=== PATIENT | male | born 1945 | race Caucasian/White ===

== ENCOUNTER 2017-02-19 20:16 | Inpatient (IN) | payer OTHER ==
[~2017-02-19] VITALS: Ht 175.3 cm; Wt 93.4 kg
[~2017-02-19 20:16] MED LIST: ACETAMINOPHEN325 M1 PO; ADVAIR 250/501 DISK IH; ADVAIR HFA120 INHALA IH; ALBUTEROL0.63 MG/3 IH; AMIODARONE HCL400 MG PO; Advair HFA 115/21 IH; Aldactone PO; Ativan PO; BISOPROLOL FUMAR5 MG PO; BUMEX1 MG PO; BUMEX2 MG PO; Bumex PO; CALCITRIOL0.25 MCG PO; CELEXA10 MG PO; COGENTIN0.5 MG PO; COUMADIN2 MG PO; COUMADIN2.5 MG PO; CYANOCOBAL1000 MCG/2 IM; Cordarone, Pacerone PO; Coreg PO; Coumadin Protocol PO; Coumadin,Jantoven PO; Cozaar PO; DAILY VITE1 EAC1 PO; DULCOLAX10 MG PR; DuoNeb IH; FERROUS SULFAT325 MG PO; FLAGYL500 MG PO; FLEET ENEMA EX230 ML PR; FLORAJEN460 MG PO; Flagyl PO; GUAIFENESIN400 MG PO; HALDOL DECANOATE IM; HALDOL10 MG; K-DUR20 MEQ PO; K-Dur PO; KLOR-CON 1010 ME1 PO; LANOXIN125 MCG PO; LASIX80 MG PO; LO-DOSE ASPIRIN81 M1 PO; LOPERAMIDE2 MG PO; LOPRESSOR50 MG PO; LOSARTAN POTASS50 MG PO; Lactinex,Floranex PO; Lasix PO; Lopressor PO; MAALOX MAXIMUM355 ML PO; MAGNESIUM400 M1 PO; METOLAZONE5 MG PO; MILK OF MAGN PO; Maalox, Mylanta PO; Micro-K,K-Tab,K-Dur, PO; PAXIL10 MG PO; PRINIVIL10 MG PO; PROVENTIL,2.5 MG/0.5 IH; Paxil PO; Protonix PO; Rocaltrol PO; SEROQUEL XR200 MG PO; SEROQUEL XR300 MG PO; SEROQUEL100 MG PO; SEROQUEL300 MG PO; SEROquel PO; Santyl TP; TYLENOL REGULA325 MG PO; VITAMIN D-32000 UNIT PO; VITAMIN D32000 UNIT PO; Vitamin D PO; XANAX0.25 MG PO; XARELTO15 MG PO; Xopenex IH; Xylocaine 5% TP; Zestril,Prinivil PO; Ziac 2.5/6.25 PO; [UNRECOGNIZED DRUG - REMARK]
[2017-02-19 20:38] LABS: HEMATOCRIT 29.4 % (38.0-50.0); MCH 30.9 PG (29.0-34.0); MCV 90.7 FL (86-99); MEAN PLAT.VOLUME 11.8 uM^3 (9.0-12.4); PLATELET COUNT 219 K/uL (156-360); RBC DIS.WIDTH-CV 12.9 % (11.8-14.6); RBC DIS.WIDTH-SD 42.5 % (39-53); RED BLOOD COUNT 3.24 M/uL (4.00-5.50); WHITE BLOOD COUNT 9.4 K/uL (4.1-10.2)
[2017-02-19 21:03] LABS: CHLORIDE 90 mEq/L (99-109)
[2017-02-19 21:04] LABS: POTASSIUM 4.5 mEq/L (3.7-5.4); SODIUM 122 mEq/L (136-147)
[2017-02-19 21:05] LABS: GLUCOSE 124 mg/dL (70-99)
[2017-02-19 21:07] LABS: ANION GAP 18 MEQ/L (2-14)
[2017-02-19 21:09] LABS: GFR ESTIMATE (CALCULATED) 25 mL/min/; TROP-I INTERPRETATION INDETERMINATE; TROPONIN-I 0.49 ng/mL (0.0-0.30)
[2017-02-19 21:10] LABS: UREA NITROGEN (BUN) 53 mg/dL (9-23)
[2017-02-19 21:26] LABS: BASE EXCESS -1.9 mEq/L (-3 to +3); BICARBONATE 20.6 mEq/L (22-26); CARBOXY HGB 1.9 % (0-5); COMMENTS - BLOOD GASES C+A+; DEVICE NIV; FI02 50 %; METHEMOGLOBIN 1.4 % (0-1.5); MODE SPONT; PCO2 27 mm Hg (35-45); PEEP 5 CM/H20; PO2 186 mm Hg (80-100); PRES. SUPPORT 10 CM/H2O; SITE RR; TOTAL RESP RATE 22 resp/min; pH 7.49 (7.35-7.45)
[2017-02-19] MEDS ORDERED: FLORANEX CHE1 TABLET PO (21:59)
[2017-02-19] MEDS ORDERED: AMOX TR-K CLV1 EAC4 PO (22:01)
[2017-02-19] MEDS ORDERED: DUONEB 2.5-0.5 M3 ML AEROSOL (22:05)
[2017-02-19 22:29] LABS: INFLUENZA A VIRAL ANTIGEN NEGATIVE; INFLUENZA B VIRAL ANTIGEN POSITIVE
[2017-02-20] VITALS (23 sets, daily range): BP systolic 0–120; BP diastolic 0–87
[2017-02-20 00:45] LABS: TROP-I INTERPRETATION INDETERMINATE; TROPONIN-I 0.51 ng/mL (0.0-0.30)
[2017-02-20 02:11] LABS: METH RESISTANT S AUREUS PCR NEGATIVE (NEGATIVE)
[2017-02-20 02:15] LABS: PROBE CHECK PASS; SPECIMEN PROCESSING CONTROL PASS
[2017-02-20 06:37] LABS: MCH 30.7 PG (29.0-34.0); MCHC 33.6 G/DL (30.0-36.0); MCV 91.5 FL (86-99); MEAN PLAT.VOLUME 12.1 uM^3 (9.0-12.4); PLATELET COUNT 209 K/uL (156-360); RBC DIS.WIDTH-CV 13.1 % (11.8-14.6); RBC DIS.WIDTH-SD 42.5 % (39-53); RED BLOOD COUNT 3.06 M/uL (4.00-5.50); WHITE BLOOD COUNT 6.6 K/uL (4.1-10.2)
[2017-02-20 07:04] LABS: ALKALINE PHOSPHATASE 84 IU/L (3-129); ANION GAP 13 MEQ/L (2-14); CHLORIDE 91 MEQ/L (99-109); GFR ESTIMATE (CALCULATED) 25 mL/min/; GLUCOSE 123 mg/dL (70-99); POTASSIUM 4.3 MEQ/L (3.7-5.4); SAMPLE HEMOLYSIS CHECK 0; SAMPLE ICTERIC CHECK 0; SAMPLE LIPEMIA CHECK 0; SODIUM 124 MEQ/L (136-147); TOTAL BILIRUBIN 0.7 MG/DL (0.0-1.0); UREA NITROGEN (BUN) 54 mg/dL (9-23)
[2017-02-20 09:45] LABS: TROP-I INTERPRETATION INDETERMINATE; TROPONIN-I 0.57 ng/mL (0.0-0.30)
[2017-02-20 13:32] LABS: INTER. NORMALIZED RATIO 1.5; PROTHROMBIN TIME 15.9 (9.2-11.2); PTT 27.5 (25-32)
[2017-02-20 15:27] LABS: TROP-I INTERPRETATION INDETERMINATE; TROPONIN-I 0.44 ng/mL (0.0-0.30)
[2017-02-21] VITALS (9 sets, daily range): BP systolic 92–120; BP diastolic 47–83
[2017-02-21 14:05] LABS: ANION GAP 11 MEQ/L (2-14); CHLORIDE 90 MEQ/L (99-109); MCH 31.1 PG (29.0-34.0); MCHC 33.4 G/DL (30.0-36.0); MEAN PLAT.VOLUME 11.2 uM^3 (9.0-12.4); POTASSIUM 3.9 MEQ/L (3.7-5.4); RBC DIS.WIDTH-CV 13.4 % (11.8-14.6); RBC DIS.WIDTH-SD 45.3 % (39-53); RED BLOOD COUNT 3.44 M/uL (4.00-5.50); SAMPLE HEMOLYSIS CHECK 0; SAMPLE ICTERIC CHECK 0; SAMPLE LIPEMIA CHECK 0; SODIUM 127 MEQ/L (136-147)
[2017-02-21 14:06] LABS: EOSINOPHIL (%) 0 % (0-5); IMMATURE GRANULOCYTE (%) 0.5 % (0.0-0.7); IMMATURE GRANULOCYTE COUNT 0.1 K/uL; INSTRUMENT ABS NEUTROPHIL CT 9.6 K/uL; LYMPHOCYTE COUNT 0.6 K/uL (1.0-2.8); MONOCYTE (%) 6.6 % (3-12); MONOCYTE COUNT 0.7 K/uL (0-0.8); NEUTROPHIL (%) 87.8 % (45-76); NEUTROPHIL COUNT 9.6 K/uL (1.8-6.4); PLATELET COUNT 288 K/uL (156-360); WHITE BLOOD COUNT 10.9 K/uL (4.1-10.2)
[2017-02-21 14:11] LABS: GFR ESTIMATE (CALCULATED) 28 mL/min/; GLUCOSE 126 mg/dL (70-99); UREA NITROGEN (BUN) 56 mg/dL (9-23)
[2017-02-22] VITALS (7 sets, daily range): BP systolic 88–117; BP diastolic 48–80
[2017-02-22 05:58] LABS: EOSINOPHIL (%) 0.1 % (0-5); HEMATOCRIT 32.8 % (38.0-50.0); IMMATURE GRANULOCYTE (%) 0.4 % (0.0-0.7); INSTRUMENT ABS NEUTROPHIL CT 7.3 K/uL; LYMPHOCYTE COUNT 0.6 K/uL (1.0-2.8); MCHC 33.2 G/DL (30.0-36.0); MCV 93.2 FL (86-99); MEAN PLAT.VOLUME 11.7 uM^3 (9.0-12.4); MONOCYTE (%) 6.3 % (3-12); MONOCYTE COUNT 0.5 K/uL (0-0.8); NEUTROPHIL (%) 85.7 % (45-76); NEUTROPHIL COUNT 7.3 K/uL (1.8-6.4); PLATELET COUNT 276 K/uL (156-360); RBC DIS.WIDTH-CV 13.4 % (11.8-14.6); RBC DIS.WIDTH-SD 45.3 % (39-53); RED BLOOD COUNT 3.52 M/uL (4.00-5.50); WHITE BLOOD COUNT 8.5 K/uL (4.1-10.2)
[2017-02-22 06:54] LABS: ANION GAP 9 MEQ/L (2-14); CHLORIDE 93 MEQ/L (99-109); GFR ESTIMATE (CALCULATED) 30 mL/min/; POTASSIUM 4.4 MEQ/L (3.7-5.4); SAMPLE HEMOLYSIS CHECK 0; SAMPLE ICTERIC CHECK 0; SAMPLE LIPEMIA CHECK 0; SODIUM 127 MEQ/L (136-147); UREA NITROGEN (BUN) 56 mg/dL (9-23)
[2017-02-22 07:02] LABS: GLUCOSE 88 mg/dL (70-99)
[2017-02-22 20:47] LABS: ANION GAP 9 MEQ/L (2-14); CHLORIDE 96 MEQ/L (99-109); POTASSIUM 4.5 MEQ/L (3.7-5.4); SAMPLE HEMOLYSIS CHECK 0; SAMPLE ICTERIC CHECK 0; SAMPLE LIPEMIA CHECK 0; SODIUM 131 MEQ/L (136-147)
[2017-02-22 20:53] LABS: GFR ESTIMATE (CALCULATED) 30 mL/min/; GLUCOSE 101 mg/dL (70-99); UREA NITROGEN (BUN) 56 mg/dL (9-23); URIC ACID 11.9 mg/dL (3.1-9.2)
[2017-02-22 20:55] LABS: ADD MIUA? YES; BILIRUBIN NEGATIVE; BLOOD LARGE; COLOR YELLOW ((YELLOW)); GLUCOSE (STRIP) NEGATIVE; KETONES NEGATIVE; LEUKOCYTES LARGE; NITRITE NEGATIVE; PROTEIN (STRIP) 30; SPECIFIC GRAVITY 1.014 (1.000-1.030); UROBILINOGEN 0.2 MG/DL (0.2-1.0)
[2017-02-22 21:11] LABS: BACTERIA RARE /HPF; EPITHELIAL CELLS RARE /HPF; MUCUS TRACE /LPF; RED BLOOD CELLS 30-40 /HPF (0-5); WHITE BLOOD CELLS 30-40 /HPF (0-5)
[2017-02-23] VITALS (10 sets, daily range): BP systolic 101–135; BP diastolic 62–90
[2017-02-23 05:07] LABS: EOSINOPHIL (%) 0.1 % (0-5); HEMATOCRIT 35.7 % (38.0-50.0); IMMATURE GRANULOCYTE (%) 0.5 % (0.0-0.7); LYMPHOCYTE COUNT 0.5 K/uL (1.0-2.8); MCH 30.9 PG (29.0-34.0); MCHC 32.8 G/DL (30.0-36.0); MCV 94.2 FL (86-99); MEAN PLAT.VOLUME 11.3 uM^3 (9.0-12.4); MONOCYTE (%) 9.6 % (3-12); MONOCYTE COUNT 0.8 K/uL (0-0.8); NEUTROPHIL (%) 83.5 % (45-76); NRBC (%) 0.5 /100 WBC (0-0); PLATELET COUNT 316 K/uL (156-360); RBC DIS.WIDTH-CV 13.5 % (11.8-14.6); RBC DIS.WIDTH-SD 46.1 % (39-53); RED BLOOD COUNT 3.79 M/uL (4.00-5.50); WHITE BLOOD COUNT 8.4 K/uL (4.1-10.2)
[2017-02-23 05:16] LABS: CHLORIDE 99 mEq/L (99-109); POTASSIUM 4.3 mEq/L (3.7-5.4); SODIUM 132 mEq/L (136-147)
[2017-02-23 05:18] LABS: GLUCOSE 111 mg/dL (70-99)
[2017-02-23 05:20] LABS: ANION GAP 10 MEQ/L (2-14)
[2017-02-23 05:22] LABS: GFR ESTIMATE (CALCULATED) 28 mL/min/
[2017-02-23 05:23] LABS: UREA NITROGEN (BUN) 57 mg/dL (9-23)
[2017-02-23 06:06] LABS: IRON 38 MCG/DL (35-150)
[2017-02-23 08:56] LABS: INTACT PARATHYROID HORMONE 272 pg/mL (10-69)
[2017-02-23 09:46] LABS: FERRITIN 46 NG/ML (22-322)
[2017-02-23 21:16] LABS: UR CREATININE CONCENTRATION 115.5 MG/DL
[2017-02-24 04:21] VITALS: BP 103/67
[2017-02-24 08:35] VITALS: BP 140/80
[2017-02-24 12:30] VITALS: BP 122/59; BP 140/60
[2017-02-24 16:30] VITALS: BP 146/60
[2017-02-24 20:04] VITALS: BP 149/76
[2017-02-24 23:29] VITALS: BP 170/91
[2017-02-25] VITALS (7 sets, daily range): BP systolic 80–160; BP diastolic 40–99
[2017-02-26 07:39] VITALS: BP 102/60
[2017-02-26 12:10] VITALS: BP 110/68
[2017-02-26 16:12] VITALS: BP 118/70
[2017-02-26 20:26] LABS: ANION GAP 10 MEQ/L (2-14); CHLORIDE 103 MEQ/L (99-109); POTASSIUM 4.3 MEQ/L (3.7-5.4); SAMPLE HEMOLYSIS CHECK 0; SAMPLE ICTERIC CHECK 0; SAMPLE LIPEMIA CHECK 0; SODIUM 137 MEQ/L (136-147)
[2017-02-26 20:31] LABS: GFR ESTIMATE (CALCULATED) 33 mL/min/; GLUCOSE 111 mg/dL (70-99); UREA NITROGEN (BUN) 47 mg/dL (9-23)
[2017-02-26 23:40] VITALS: BP 102/68
[2017-02-27 08:32] VITALS: BP 120/90
[2017-02-27] MEDS ORDERED: LOPRESSOR50 MG PO (12:41)
[2017-02-27] MEDS ORDERED: VITAMIN D-32000 UNI2 PO (12:42)
[2017-02-27] MEDS ORDERED: CALCITRIOL0.25 MCG PO (12:42)
== END 2017-02-27 15:25 | DRG 291 ==
LOC: EME → EDBD 20:16 → 3EAST 23:18 → EDOF 23:18 → 4WEST 23:18 → 3EAST 02-23 15:24
PROVIDERS: Anesthesiology; Emergency Medicine; Family Medicine; Hospitalist; Internal Medicine Critical Care Medicine; Internal Medicine Nephrology
DX: I50.43 Acute on chronic combined systolic (congestive) and diastolic (congestive) heart failure (principal); G93.41 Metabolic encephalopathy; J96.00 Acute respiratory failure, unspecified whether with hypoxia or hypercapnia; J44.1 Chronic obstructive pulmonary disease with (acute) exacerbation; I42.1 Obstructive hypertrophic cardiomyopathy; E87.3 Alkalosis; E87.1 Hypo-osmolality and hyponatremia; I13.0 Hypertensive heart and chronic kidney disease with heart failure and stage 1 through stage 4 chronic kidney disease, or unspecified chronic kidney disease; N17.9 Acute kidney failure, unspecified; I48.92 Unspecified atrial flutter; F25.9 Schizoaffective disorder, unspecified; Z91.19 Patient's noncompliance with other medical treatment and regimen; E53.8 Deficiency of other specified B group vitamins; M19.90 Unspecified osteoarthritis, unspecified site; F03.90 Unspecified dementia, unspecified severity, without behavioral disturbance, psychotic disturbance, mood disturbance, and anxiety; F17.210 Nicotine dependence, cigarettes, uncomplicated; Z95.810 Presence of automatic (implantable) cardiac defibrillator; J10.1 Influenza due to other identified influenza virus with other respiratory manifestations; I48.0 Paroxysmal atrial fibrillation; D50.9 Iron deficiency anemia, unspecified; R32 Unspecified urinary incontinence; N40.0 Benign prostatic hyperplasia without lower urinary tract symptoms; N18.3 Chronic kidney disease, stage 3 (moderate); R74.8 Abnormal levels of other serum enzymes
CPT/HCPCS: 36600; 71010; 80048; 80048 91; 80053; 80069; 81003; 82306; 82570; 82607; 82728; 82746; 82803; 83540; 83930; 83935; 83970; 84156; 84300; 84466; 84484; 84550; 85025; 85027; 85610; 85730; 87081; 87502; 87641; 93005; 94002; 94640; 94640 76; 94760; 94799; 97530 GO; 99202; 99281; 99285; J0610; J1160; J1644; J1940; J2930; J7030; J7050

== ENCOUNTER 2017-03-01 22:13 | Inpatient (IN) | payer OTHER ==
[~2017-03-01] VITALS: Ht 175.3 cm; Wt 88.0 kg
[~2017-03-01 22:13] MED LIST changes: +AMOX TR-K CLV1 EAC4 PO; +DUONEB 2.5-0.5 M3 ML AEROSOL; +FLORANEX CHE1 TABLET PO; +VITAMIN D-32000 UNI2 PO
[2017-03-01 23:12] LABS: BASE EXCESS -1.8 mEq/L (-3 to +3); BICARBONATE 21.5 mEq/L (22-26); CARBOXY HGB 2.2 % (0-5); COMMENTS - BLOOD GASES A+C+; METHEMOGLOBIN 1.3 % (0-1.5); O2 FLOW 6 L/MIN; PCO2 31 mm Hg (35-45); PO2 137 mm Hg (80-100); SITE RR; pH 7.45 (7.35-7.45)
[2017-03-01 23:13] LABS: HEMATOCRIT 32.9 % (38.0-50.0); MCHC 32.2 G/DL (30.0-36.0); MCV 93.2 FL (86-99); MEAN PLAT.VOLUME 10.6 uM^3 (9.0-12.4); PLATELET COUNT 273 K/uL (156-360); RBC DIS.WIDTH-CV 13.7 % (11.8-14.6); RED BLOOD COUNT 3.53 M/uL (4.00-5.50)
[2017-03-01 23:13] LABS: DEVICE MA RUNNING; TOTAL RESP RATE 23 resp/min
[2017-03-01 23:16] LABS: CHLORIDE 103 mEq/L (99-109); SODIUM 135 mEq/L (136-147)
[2017-03-01 23:18] LABS: GLUCOSE 109 mg/dL (70-99); POTASSIUM 5.5 mEq/L (3.7-5.4)
[2017-03-01 23:19] LABS: ANION GAP 11 MEQ/L (2-14)
[2017-03-01 23:20] LABS: TOTAL BILIRUBIN 1.1 mg/dL (0.0-1.0)
[2017-03-01 23:21] LABS: TROP-I INTERPRETATION NEGATIVE; TROPONIN-I 0.22 ng/mL (0.0-0.30)
[2017-03-01 23:22] LABS: ALKALINE PHOSPHATASE 100 IU/L (3-129); GFR ESTIMATE (CALCULATED) 35 mL/min/
[2017-03-01 23:23] LABS: UREA NITROGEN (BUN) 43 mg/dL (9-23)
[2017-03-01] MEDS ORDERED: FLORANEX CHE1 TABLET PO (23:51)
[2017-03-01] MEDS ORDERED: METOPROLOL TART50 MG PO (23:52)
[2017-03-01] MEDS ORDERED: CALCITRIOL0.25 MCG PO (23:52)
[2017-03-01] MEDS ORDERED: VITAMIN D31000 UNIT PO (23:53)
[2017-03-01] MEDS ORDERED: IPRATROPIU0.2 MG/1 M IH (23:54)
[2017-03-01] MEDS ORDERED: PROVENTIL,2.5 MG/3 M IH (23:55)
[2017-03-01] MEDS ORDERED: FLEET ENEMA-AD118 ML PR (23:56)
[2017-03-02 00:09] LABS: INTER. NORMALIZED RATIO 1.2; PROTHROMBIN TIME 12.7 (9.2-11.2)
[2017-03-02 07:09] LABS: ADD MIUA? YES; BILIRUBIN NEGATIVE; BLOOD SMALL; COLOR YELLOW ((YELLOW)); GLUCOSE (STRIP) NEGATIVE; KETONES NEGATIVE; LEUKOCYTES LARGE; NITRITE NEGATIVE; PROTEIN (STRIP) 30; SPECIFIC GRAVITY 1.008 (1.000-1.030); UROBILINOGEN 0.2 MG/DL (0.2-1.0)
[2017-03-02 07:22] LABS: BACTERIA RARE /HPF; CALCIUM OXALATE CRYSTALS 2+ /HPF; EPITHELIAL CELLS RARE /HPF; MUCUS 2+ /LPF; RED BLOOD CELLS 20-30 /HPF (0-5); UCUL ADDED? YES; WHITE BLOOD CELLS TNTC /HPF (0-5)
[2017-03-02 12:49] LABS: CHLORIDE 100 mEq/L (99-109); POTASSIUM 4.7 mEq/L (3.7-5.4); SODIUM 136 mEq/L (136-147)
[2017-03-02 12:51] LABS: GLUCOSE 109 mg/dL (70-99)
[2017-03-02 12:52] LABS: ANION GAP 11 MEQ/L (2-14)
[2017-03-02 12:55] LABS: GFR ESTIMATE (CALCULATED) 30 mL/min/
[2017-03-02 12:56] LABS: UREA NITROGEN (BUN) 46 mg/dL (9-23)
[2017-03-02 13:35] VITALS: BP 117/71
[2017-03-02 17:18] VITALS: BP 117/79
[2017-03-02 19:28] VITALS: BP 161/94
[2017-03-02 21:14] LABS: METH RESISTANT S AUREUS PCR NEGATIVE (NEGATIVE)
[2017-03-02 21:15] LABS: PROBE CHECK PASS; SPECIMEN PROCESSING CONTROL PASS
[2017-03-02 23:14] VITALS: BP 119/59
[2017-03-03 02:59] VITALS: BP 117/65
[2017-03-03 07:01] VITALS: BP 115/67
[2017-03-03 11:29] VITALS: BP 112/64
[2017-03-03 16:24] VITALS: BP 116/74
[2017-03-03 19:25] VITALS: BP 130/76
[2017-03-03 22:25] VITALS: BP 128/70
[2017-03-04 02:43] VITALS: BP 102/65
[2017-03-04 06:15] LABS: EOSINOPHIL (%) 1.2 % (0-5); EOSINOPHIL COUNT 0.2 K/uL (0-0.3); HEMATOCRIT 32.8 % (38.0-50.0); IMMATURE GRANULOCYTE (%) 0.6 % (0.0-0.7); IMMATURE GRANULOCYTE COUNT 0.1 K/uL; INSTRUMENT ABS NEUTROPHIL CT 10.5 K/uL; LYMPHOCYTE COUNT 1.4 K/uL (1.0-2.8); MCH 29.8 PG (29.0-34.0); MCHC 32.6 G/DL (30.0-36.0); MCV 91.4 FL (86-99); MEAN PLAT.VOLUME 10.8 uM^3 (9.0-12.4); MONOCYTE (%) 4.8 % (3-12); MONOCYTE COUNT 0.6 K/uL (0-0.8); NEUTROPHIL COUNT 10.5 K/uL (1.8-6.4); NRBC (%) 0.2 /100 WBC (0-0); PLATELET COUNT 259 K/uL (156-360); RBC DIS.WIDTH-CV 13.6 % (11.8-14.6); RBC DIS.WIDTH-SD 45.3 % (39-53); RED BLOOD COUNT 3.59 M/uL (4.00-5.50); WHITE BLOOD COUNT 12.8 K/uL (4.1-10.2)
[2017-03-04 06:44] LABS: ANION GAP 10 MEQ/L (2-14); CHLORIDE 95 MEQ/L (99-109); GFR ESTIMATE (CALCULATED) 30 mL/min/; GLUCOSE 91 mg/dL (70-99); POTASSIUM 3.9 MEQ/L (3.7-5.4); SAMPLE HEMOLYSIS CHECK 0; SAMPLE ICTERIC CHECK 0; SAMPLE LIPEMIA CHECK 0; SODIUM 134 MEQ/L (136-147); UREA NITROGEN (BUN) 48 mg/dL (9-23)
[2017-03-04 08:00] VITALS: BP 106/78
[2017-03-04] MEDS ORDERED: LASIX40 MG PO (11:39)
[2017-03-04 13:02] VITALS: BP 97/59
== END 2017-03-04 15:23 | DRG 291 ==
LOC: EME → EDBD 22:13 → EDOF 03-02 03:12 → 4EAST 03-02 13:26
PROVIDERS: Emergency Medicine; Family Medicine
DX: I13.0 Hypertensive heart and chronic kidney disease with heart failure and stage 1 through stage 4 chronic kidney disease, or unspecified chronic kidney disease (principal); I50.23 Acute on chronic systolic (congestive) heart failure; N18.3 Chronic kidney disease, stage 3 (moderate); J44.1 Chronic obstructive pulmonary disease with (acute) exacerbation; F31.9 Bipolar disorder, unspecified; F25.9 Schizoaffective disorder, unspecified; F17.210 Nicotine dependence, cigarettes, uncomplicated; I42.9 Cardiomyopathy, unspecified; E53.8 Deficiency of other specified B group vitamins; I25.10 Atherosclerotic heart disease of native coronary artery without angina pectoris; I48.0 Paroxysmal atrial fibrillation; F03.90 Unspecified dementia, unspecified severity, without behavioral disturbance, psychotic disturbance, mood disturbance, and anxiety; N40.0 Benign prostatic hyperplasia without lower urinary tract symptoms; Z79.01 Long term (current) use of anticoagulants; Z95.810 Presence of automatic (implantable) cardiac defibrillator; Z79.82 Long term (current) use of aspirin
CPT/HCPCS: 36600; 71010; 71020; 74176; 80048; 80053; 81003; 82803; 83880; 84484; 85025; 85027; 85610; 85730; 87086; 87641; 93005; 94640; 94640 76; 94799; 99202; 99281; 99285; J1940

== ENCOUNTER 2017-03-11 21:20 | Inpatient (IN) | payer OTHER ==
[~2017-03-11] VITALS: Ht 175.3 cm; Wt 88.5 kg
[~2017-03-11 21:20] MED LIST changes: +FLEET ENEMA-AD118 ML PR; +IPRATROPIU0.2 MG/1 M IH; +LASIX40 MG PO; +METOPROLOL TART50 MG PO; +PROVENTIL,2.5 MG/3 M IH; +VITAMIN D31000 UNIT PO
[2017-03-11 21:54] LABS: BASOPHIL COUNT 0.1 K/uL (0-0.1); EOSINOPHIL (%) 1.8 % (0-5); EOSINOPHIL COUNT 0.2 K/uL (0-0.3); HEMATOCRIT 34.1 % (38.0-50.0); IMMATURE GRANULOCYTE (%) 0.4 % (0.0-0.7); INSTRUMENT ABS NEUTROPHIL CT 6.2 K/uL; LYMPHOCYTE COUNT 1.2 K/uL (1.0-2.8); MCH 29.9 PG (29.0-34.0); MCV 93.7 FL (86-99); MEAN PLAT.VOLUME 9.7 uM^3 (9.0-12.4); MONOCYTE (%) 6.2 % (3-12); MONOCYTE COUNT 0.5 K/uL (0-0.8); NEUTROPHIL (%) 76.2 % (45-76); NEUTROPHIL COUNT 6.2 K/uL (1.8-6.4); RBC DIS.WIDTH-CV 14.4 % (11.8-14.6); RBC DIS.WIDTH-SD 48.7 % (39-53); RED BLOOD COUNT 3.64 M/uL (4.00-5.50)
[2017-03-11 21:55] LABS: PLATELET COUNT 380 K/uL (156-360); WHITE BLOOD COUNT 8.2 K/uL (4.1-10.2)
[2017-03-11 22:02] LABS: CHLORIDE 109 mEq/L (99-109); POTASSIUM 4.8 mEq/L (3.7-5.4); SODIUM 140 mEq/L (136-147)
[2017-03-11 22:03] LABS: MAGNESIUM 2.3 mg/dL (1.3-2.7)
[2017-03-11 22:04] LABS: GLUCOSE 105 mg/dL (70-99)
[2017-03-11 22:06] LABS: ANION GAP 11 MEQ/L (2-14)
[2017-03-11 22:08] LABS: GFR ESTIMATE (CALCULATED) 37 mL/min/
[2017-03-11 22:09] LABS: UREA NITROGEN (BUN) 30 mg/dL (9-23)
[2017-03-11 22:15] LABS: TROP-I INTERPRETATION NEGATIVE; TROPONIN-I 0.12 ng/mL (0.0-0.30)
[2017-03-11 22:45] LABS: INTER. NORMALIZED RATIO 1.1; PROTHROMBIN TIME 11.1 (9.2-11.2); PTT 28.3 (25-32)
[2017-03-11] MEDS ORDERED: TAB-A-VITE1 EACH PO (23:55)
[2017-03-12] MEDS ORDERED: LASIX40 MG PO (00:03)
[2017-03-12] MEDS ORDERED: ATROVENT 00.5 MG/2.5 IH (00:07)
[2017-03-12] MEDS ORDERED: PROVENTIL,2.5 MG/3 M IH (00:08)
[2017-03-12 02:55] VITALS: BP 118/70
[2017-03-12 04:01] LABS: METH RESISTANT S AUREUS PCR NEGATIVE (NEGATIVE)
[2017-03-12 04:07] LABS: PROBE CHECK PASS; SPECIMEN PROCESSING CONTROL PASS
[2017-03-12 04:48] LABS: TROP-I INTERPRETATION NEGATIVE; TROPONIN-I 0.13 ng/mL (0.0-0.30)
[2017-03-12 07:38] VITALS: BP 112/78
[2017-03-12 10:07] LABS: TROP-I INTERPRETATION NEGATIVE
[2017-03-12 12:29] VITALS: BP 127/91
[2017-03-12 17:30] LABS: TROP-I INTERPRETATION NEGATIVE; TROPONIN-I 0.12 ng/mL (0.0-0.30)
[2017-03-12 17:31] VITALS: BP 139/99
[2017-03-12 20:01] VITALS: BP 157/97
[2017-03-12 22:57] VITALS: BP 148/89
[2017-03-13 03:08] VITALS: BP 124/84
[2017-03-13 07:45] VITALS: BP 148/91
[2017-03-13 11:45] VITALS: BP 124/89
[2017-03-13 17:00] VITALS: BP 132/88
[2017-03-13 20:47] VITALS: BP 147/94
[2017-03-14 00:25] VITALS: BP 105/67
[2017-03-14 05:04] VITALS: BP 109/56
[2017-03-14 06:30] LABS: ANION GAP 11 MEQ/L (2-14); CHLORIDE 102 MEQ/L (99-109); GFR ESTIMATE (CALCULATED) 30 mL/min/; GLUCOSE 153 mg/dL (70-99); POTASSIUM 4.1 MEQ/L (3.7-5.4); SAMPLE HEMOLYSIS CHECK 0; SAMPLE ICTERIC CHECK 0; SAMPLE LIPEMIA CHECK 0; SODIUM 138 MEQ/L (136-147)
[2017-03-14 06:47] LABS: UREA NITROGEN (BUN) 54 mg/dL (9-23)
[2017-03-14 06:56] LABS: EOSINOPHIL (%) 0 % (0-5); HEMATOCRIT 29.9 % (38.0-50.0); IMMATURE GRANULOCYTE COUNT 0.1 K/uL; INSTRUMENT ABS NEUTROPHIL CT 11.3 K/uL; LYMPHOCYTE COUNT 0.4 K/uL (1.0-2.8); MCH 30.1 PG (29.0-34.0); MCHC 32.1 G/DL (30.0-36.0); MCV 93.7 FL (86-99); MEAN PLAT.VOLUME 10.7 uM^3 (9.0-12.4); MONOCYTE (%) 2.1 % (3-12); MONOCYTE COUNT 0.3 K/uL (0-0.8); NEUTROPHIL (%) 93.3 % (45-76); NEUTROPHIL COUNT 11.3 K/uL (1.8-6.4); PLATELET COUNT 328 K/uL (156-360); RBC DIS.WIDTH-CV 14.1 % (11.8-14.6); RBC DIS.WIDTH-SD 48.2 % (39-53); RED BLOOD COUNT 3.19 M/uL (4.00-5.50)
[2017-03-14 07:17] LABS: WHITE BLOOD COUNT 12.1 K/uL (4.1-10.2)
[2017-03-14 07:21] VITALS: BP 142/83
[2017-03-14 11:57] VITALS: BP 119/74
[2017-03-14 15:38] VITALS: BP 122/83
[2017-03-14 19:46] VITALS: BP 104/71
[2017-03-15 00:31] VITALS: BP 138/88
[2017-03-15 04:41] VITALS: BP 133/86
[2017-03-15 06:58] LABS: EOSINOPHIL (%) 0 % (0-5); HEMATOCRIT 31.9 % (38.0-50.0); IMMATURE GRANULOCYTE (%) 0.5 % (0.0-0.7); IMMATURE GRANULOCYTE COUNT 0.1 K/uL; INSTRUMENT ABS NEUTROPHIL CT 9.8 K/uL; LYMPHOCYTE COUNT 0.8 K/uL (1.0-2.8); MCH 29.5 PG (29.0-34.0); MCV 92.2 FL (86-99); MEAN PLAT.VOLUME 10.9 uM^3 (9.0-12.4); MONOCYTE (%) 7.2 % (3-12); MONOCYTE COUNT 0.8 K/uL (0-0.8); NEUTROPHIL (%) 85.3 % (45-76); NEUTROPHIL COUNT 9.8 K/uL (1.8-6.4); PLATELET COUNT 358 K/uL (156-360); RBC DIS.WIDTH-CV 14.3 % (11.8-14.6); RBC DIS.WIDTH-SD 47.8 % (39-53); RED BLOOD COUNT 3.46 M/uL (4.00-5.50); WHITE BLOOD COUNT 11.5 K/uL (4.1-10.2)
[2017-03-15 07:18] LABS: ANION GAP 10 MEQ/L (2-14); CHLORIDE 96 MEQ/L (99-109); GFR ESTIMATE (CALCULATED) 30 mL/min/; POTASSIUM 3.9 MEQ/L (3.7-5.4); SAMPLE HEMOLYSIS CHECK 0; SAMPLE ICTERIC CHECK 0; SAMPLE LIPEMIA CHECK 0; SODIUM 135 MEQ/L (136-147); UREA NITROGEN (BUN) 58 mg/dL (9-23)
[2017-03-15 07:20] LABS: GLUCOSE 97 mg/dL (70-99)
[2017-03-15 08:30] VITALS: BP 117/81
[2017-03-15] MEDS ORDERED: AUGMENTIN875 MG PO (12:38)
== END 2017-03-15 15:05 | DRG 308 ==
LOC: EME → EDBD 21:20 → EME 21:20 → 4EAST 23:00 → EDOF 23:00 → 4EAST 03-12 02:22
PROVIDERS: Emergency Medicine; Family Medicine
PROC: 5A09357 Assistance with Respiratory Ventilation, Less than 24 Consecutive Hours, Continuous Positive Airway Pressure (ICD-10-PCS; principal; 2017-03-13)
DX: I48.0 Paroxysmal atrial fibrillation (principal); J44.1 Chronic obstructive pulmonary disease with (acute) exacerbation; J96.21 Acute and chronic respiratory failure with hypoxia; I50.23 Acute on chronic systolic (congestive) heart failure; I13.0 Hypertensive heart and chronic kidney disease with heart failure and stage 1 through stage 4 chronic kidney disease, or unspecified chronic kidney disease; N18.3 Chronic kidney disease, stage 3 (moderate); E11.22 Type 2 diabetes mellitus with diabetic chronic kidney disease; J44.0 Chronic obstructive pulmonary disease with (acute) lower respiratory infection; J20.9 Acute bronchitis, unspecified; F25.9 Schizoaffective disorder, unspecified; I42.0 Dilated cardiomyopathy; Z66 Do not resuscitate; Z51.5 Encounter for palliative care; I71.9 Aortic aneurysm of unspecified site, without rupture; K27.9 Peptic ulcer, site unspecified, unspecified as acute or chronic, without hemorrhage or perforation; F31.9 Bipolar disorder, unspecified; F03.90 Unspecified dementia, unspecified severity, without behavioral disturbance, psychotic disturbance, mood disturbance, and anxiety; M19.90 Unspecified osteoarthritis, unspecified site; E53.8 Deficiency of other specified B group vitamins; N40.0 Benign prostatic hyperplasia without lower urinary tract symptoms; F17.210 Nicotine dependence, cigarettes, uncomplicated; Z91.19 Patient's noncompliance with other medical treatment and regimen; Z95.810 Presence of automatic (implantable) cardiac defibrillator; Z79.82 Long term (current) use of aspirin
CPT/HCPCS: 71010; 78582; 80048; 83735; 83880; 84443; 84484; 85025; 85610; 85730; 87081; 87641; 93005; 94002; 94640; 94640 76; 94760; 94799; 99202; 99281; 99285; A9540; A9567; J1100; J1630; J1940; J2060; J2270; J2543; J2930; J3475; J7050; J7512